=== PATIENT | female | born 1965 | race Caucasian/White ===

== ENCOUNTER 2017-09-25 20:53 | Emergency (ER) | payer SELFPAY ==
[2017-09-25 21:09] VITALS: TEMP 97.7; O2SAT 96
[2017-09-25] MEDS ORDERED: KETOROLAC TROMETHAMINE INJ 60 MG/2 ML VIAL IM ONE (21:10)
[2017-09-25] MEDS ORDERED: ORPHENADRINE CITRATE 30 MG/ML AMP IM ONE (21:10)
--- NOTE | 2017-09-25 21:10 | ED.PDOC ---
History of Present Illness - General Chief Complaint: Neck Injury/Pain Stated Complaint: neck pain Time Seen by Provider: 09/25/17 21:07 Source: RN notes reviewed, Vital Signs reviewed Additional Information: 52 YEAR OLD COMPLAINTS OF NECK PAIN AND RADIATION DOWN BOTH ARMS SHE HAS HAD SURGERY FOR CERVICAL SPONDYLOSIS AND CHIARI MALFORMATION LAST SURGERY 3 YEARS AGO AT [facility] NO RECENT TRAUMA - History of Present Illness Timing/Duration: 1 week Improving Factors: nothing Worsening Factors: nothing Associated Symptoms: denies symptoms Allergies/Adverse Reactions: Allergies NO KNOWN ALLERGY Allergy (Verified 09/25/17 21:17) Home Medications: Ambulatory Orders Alprazolam 0.5 mg PO BID PRN 08/23/13 Duloxetine HCl [Cymbalta] 60 mg PO BID 08/23/13 Eszopiclone [Lunesta] 3 mg PO HS 08/23/13 Gabapentin 300 mg PO BID 08/23/13 Losartan Potassium & Hydrochlo [Losartan Potassium/Hydroc] 1 tab PO AM 08/23/13 Omeprazole 40 mg PO 08/23/13 Methocarbamol [Robaxin] 750 mg PO Q8HR #30 tab 09/25/17 Review of Systems - Review of Systems Constitutional: States: no symptoms reported EENTM: States: no symptoms reported Respiratory: States: no symptoms reported Cardiology: States: no symptoms reported Gastrointestinal/Abdominal: States: no symptoms reported Genitourinary: States: no symptoms reported Musculoskeletal: States: no symptoms reported Skin: States: no symptoms reported Neurological: States: see HPI Endocrine: States: no symptoms reported Past Medical History (General) - Patient Medical History Hx Congestive Heart Failure: No Hx Diabetes: No Family Medical History - Family History Mother Family History: Unknown Living Status: Still Living Physical Exam - Physical Exam General Appearance: Alert, No apparent distress Eye Exam: bilateral normal Ears, Nose, Throat: hearing grossly normal, normal ENT inspection, normal pharynx Respiratory: chest non-tender, lungs clear, normal breath sounds, no respiratory distress, no accessory muscle use Cardiovascular/Chest: normal peripheral pulses, regular rate, rhythm, no edema, no gallop, no JVD Gastrointestinal/Abdominal: normal bowel sounds, non tender, soft, no organomegaly, no pulsatile mass Back Exam: normal inspection, no CVA tenderness Extremity: normal range of motion, non-tender, normal inspection 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 Copy, Patient Portal Self Enrollment Instructions: DI for Neck Pain Diet: regular diet Activity: increase activity as tolerated Referrals: Teddy Estrada MD [Primary Care Provider] - 1-2 Weeks Prescriptions: Methocarbamol [Robaxin] 750 mg PO Q8HR #30 tab Home Medications: Ambulatory Orders Alprazolam 0.5 mg PO BID PRN 08/23/13 Duloxetine HCl [Cymbalta] 60 mg PO BID 08/23/13 Eszopiclone [Lunesta] 3 mg PO HS 08/23/13 Gabapentin 300 mg PO BID 08/23/13 Losartan Potassium & Hydrochlo [Losartan Potassium/Hydroc] 1 tab PO AM 08/23/13 Omeprazole 40 mg PO 08/23/13 Methocarbamol [Robaxin] 750 mg PO Q8HR #30 tab 09/25/17
[2017-09-25 22:25] VITALS: BP 122/90
== END 2017-09-25 22:06 | disposition home or self-care (01) ==
LOC: ER 20:53
DX: M54.12 Radiculopathy, cervical region (principal); T14.8XXA Other injury of unspecified body region, initial encounter; X58.XXXA Exposure to other specified factors, initial encounter
CPT/HCPCS: J1885; J2360

== ENCOUNTER → 2018-07-03 | Outpatient (CLI) | payer OTHER ==
--- NOTE | 2018-07-04 17:20 | MRI ---
EXAM DESCRIPTION: Lumbar Spine w/o Contrast : Magnetic Resonance Imaging. CLINICAL HISTORY: DORSALGIA COMPARISON: None. TECHNIQUE: Multiplanar, multiple standard sequences, non contrast MRI, lumbar spine. FINDINGS: L5-S1: Desiccated signal in the disc and minimal disc space loss. Central air or calcification in the disc. Modic type I endplate reactive changes bilaterally. Grade 1 anterolisthesis 5 mm. Disc bulges slightly posterior to the superior L1 endplate. At the base of the right foramen in the right side canal there is a focal protrusion of the disc which is abutting the right subarticular recess and the descending right S1 nerve root. This nerve root appears conjoined or thickened. Bilateral foraminal encroachment secondary to anterolisthesis result in bilateral foraminal stenosis more right than left. Bilateral facet arthrosis and hypertrophy more left than right. L4-5: Desiccation of the disc and posterior more than anterior disc space loss. Midline 5 mm protrusion abutting the thecal sac with minimal migration below the disc space abutting the descending left L5 nerve. Left paracentral AP canal diameter 9 mm, mild canal stenosis. Bilateral facet arthrosis and ligament hypertrophy. Bilateral mild to moderate foraminal narrowing. L3-4: Disc desiccation with minimal disc space loss more posterior. Posterior broad-based disc bulge with midline protrusion 6 mm impressing on the thecal sac. Bilateral flavum ligament hypertrophy. AP canal diameter 7 mm. Bilateral mild foraminal narrowing. L2-3: Disc desiccation and minimal to moderate disc space loss. Posterior broad-based 4 mm bulge. Bilateral facet arthrosis and flavum ligament hypertrophy. AP canal diameter 10 mm. Left side Modic type II endplate reactive changes with disc spur complex encroaching on the foramen which is moderately narrowed. Right foramen is patent. L1-2: Disc intensity disc space almost identical to L2-3 disc space, except left posterior 6 mm disc protrusion with T2 hyperintense signal in an annular fissure. Disc extrusions are migrating below the disc space encroaching on the left subarticular recess and the descending left L2 nerve. Mild to moderate left foraminal narrowing with right foramen patent. Bilateral minimal flavum ligament hypertrophy and facet arthrosis. T12-L1: Anterior disc bulge. Desiccated disc minimal disc space loss. 4 mm disc bulge slightly more to the left of midline, narrowing the left foramen but no nerve impingement. Right foramen is patent. Posterior elements unremarkable. Canal patent.. L2-L4 dextroscoliosis. Paravertebral soft tissues show muscle atrophy at multiple levels. Otherwise normal marrow signal in the remaining vertebral bodies and the posterior elements. Vertebral bodies are not compressed at any level. IMPRESSION: 1. Grade 1 anterolisthesis L5-S1 bulging disc. Right posterior disc migration below the disc space and or thickened conjoined right S1 nerve in the right subarticular recess. Correlate with clinical findings. Bilateral foraminal stenosis. Correlate for bilateral L5 radiculopathy. 2. Midline L4-5 disc protrusion with migration below the disc space abutting the descending left L5 nerve in the left subarticular recess. Multifactorial Mild central canal stenosis. 3. L3-4 posterior disc bulge. Hypertrophy of the posterior elements with mild to moderate multifactorial canal stenosis. Foramina are patent. 4. Posterior broad-based L2-3 disc bulge. Posterior element hypertrophy and arthrosis. Borderline mild central canal stenosis. Moderate spondylosis to the left narrowing the foramen. 5. Left posterior protrusion of the L1-2 disc and inferior extrusion or migration encroaching on the left subarticular recess and the descending left L2 nerve. Correlate for radiculopathy. Electronically signed by: Neto Gongora MD 07/04/2018 5:19 PM CDT
== END ==
LOC: MRI 14:00
PROVIDERS: ATTEND Family Medicine
DX: M43.17 Spondylolisthesis, lumbosacral region (principal); M51.26 Other intervertebral disc displacement, lumbar region; M48.061 Spinal stenosis, lumbar region without neurogenic claudication

== ENCOUNTER → 2018-07-03 | Outpatient (CLI) | payer OTHER | LOC: YCFC.O 07-02 14:40 | PROVIDERS: ATTEND Family Medicine | DX: I10 Essential (primary) hypertension (principal); R53.83 Other fatigue; Z87.891 Personal history of nicotine dependence ==

== ENCOUNTER 2018-10-04 10:36 | Emergency (ER) | payer BC, OTHER ==
[2018-10-04] MEDS ORDERED: CLINDAMYCIN HCL CAP 150 MG CAP PO ONE (10:44)
[2018-10-04] MEDS ORDERED: CLINDAMYCIN PHOSPHATE 150 MG/ML VIAL IM ONE (10:44)
--- NOTE | 2018-10-04 10:44 | ED.PDOC ---
History of Present Illness - General Chief Complaint: Dental/Mouth Stated Complaint: Dental discomfort Time Seen by Provider: 10/04/18 10:43 Source: patient - History of Present Illness Initial Comments: Gris Wheeler 53 y/o female see er with dull pain left lower jaw for 2-3 days,no fever or chills.Has dentist appointment coming Timing/Duration: other - see hpi Severity: moderate EENT Location: dental Prearrival Treatment: no prearrival treatment Presenting Symptoms: pain Improving Factors: nothing Worsening Factors: eating Associated Symptoms: other - see hpi Allergies/Adverse Reactions: Allergies NO KNOWN ALLERGY Allergy (Verified 09/25/17 21:17) Home Medications: Ambulatory Orders Alprazolam 0.5 mg PO BID PRN 08/23/13 Duloxetine HCl [Cymbalta] 60 mg PO BID 08/23/13 Eszopiclone [Lunesta] 3 mg PO HS 08/23/13 Gabapentin 300 mg PO BID 08/23/13 Losartan Potassium & Hydrochlo [Losartan Potassium/Hydroc] 1 tab PO AM 08/23/13 Omeprazole 40 mg PO 08/23/13 Methocarbamol [Robaxin] 750 mg PO Q8HR #30 tab 09/25/17 Acetamin W/Cod #3 Tab [Tylenol w/CODEINE #3] 1 ea PO Q6HRS PRN #20 tab 10/04/18 Clindamycin HCl [Cleocin] 300 mg PO TID 7 Days #42 cap 10/04/18 Review of Systems - Review of Systems Constitutional: States: no symptoms reported EENTM: States: see HPI, other - dental pain Respiratory: States: no symptoms reported Cardiology: States: no symptoms reported All other Systems: Reviewed and Negative, No Change from Baseline Past Medical History (General) - Patient Medical History Hx Seizures: No Hx Stroke: No Hx Asthma: No Hx Congestive Heart Failure: No Hx Hypertension: No Hx Diabetes: No Hx Cancer: No Hx MRSA: No Surgical History: cholecystectomy, other - hysterectomy.neck - Vaccination History Hx Tetanus, Diphtheria Vaccination: Yes Hx Influenza Vaccination: No Hx Pneumococcal Vaccination: No - Social History Hx Tobacco Use: Yes Hx Alcohol Use: No - Activities of Daily Living Patient Lives Alone: No - Female History Patient : No Family Medical History - Family History Mother Family History: Unknown Living Status: Still Living Physical Exam - Physical Exam General Appearance: Alert, Comfortable, No apparent distress Eye Exam: bilateral normal Ear Exam: bilateral ear: auricle normal, canal normal, TM normal Nasal Exam: normal inspection Throat Exam: other - multiple dental decay and missing teeth with mild gum swelling Neck: non-tender, full range of motion, supple, normal inspection, trachea midline Cardiovascular/Respiratory: regular rate, rhythm, no M/R/G, normal peripheral pulses, no JVD Abdominal Exam: non-tender, no organomegaly Neurologic: no motor/sensory deficits, alert, oriented x 3 Skin Exam: normal color, warm/dry Progress - Progress Progress: 10/04/18 11:14 Vital Signs - 8 hr 10/04/18 10/04/18 10:40 11:08 Pulse Rate [ 102 H Left Radial] Respiratory 16 16 Rate Blood Pressure 135/109 [Left Arm] O2 Sat by Pulse 96 Oximetry Departure - Departure Clinical Impression: Dental decay, Abscess, dental Time of Disposition: 11:15 Disposition: Discharge to Home or Self Care Condition: Good Departure Forms: ED Discharge - Pt. Copy, Patient Portal Self Enrollment Instructions: DI for Dental Pain, Tooth Decay, Adult (DC), Dental Pain (DC), Tooth Abscess (DC) Diet: other - soft diet until better Referrals: Ken Cuenca MD [Primary Care Provider] - 1-2 Weeks Prescriptions: Acetamin W/Cod #3 Tab [Tylenol w/CODEINE #3] 1 ea PO Q6HRS PRN #20 tab PRN Reason: Pain Clindamycin HCl [Cleocin] 300 mg PO TID 7 Days #42 cap Home Medications: Ambulatory Orders Alprazolam 0.5 mg PO BID PRN 08/23/13 Duloxetine HCl [Cymbalta] 60 mg PO BID 08/23/13 Eszopiclone [Lunesta] 3 mg PO HS 08/23/13 Gabapentin 300 mg PO BID 08/23/13 Losartan Potassium & Hydrochlo [Losartan Potassium/Hydroc] 1 tab PO AM 08/23/13 Omeprazole 40 mg PO 08/23/13 Methocarbamol [Robaxin] 750 mg PO Q8HR #30 tab 09/25/17 Acetamin W/Cod #3 Tab [Tylenol w/CODEINE #3] 1 ea PO Q6HRS PRN #20 tab 10/04/18 Clindamycin HCl [Cleocin] 300 mg PO TID 7 Days #42 cap 10/04/18
[2018-10-04] MEDS ORDERED: IBUPROFEN 200 MG TAB PO ONE (10:45)
[2018-10-04 11:09] VITALS: O2SAT 96
[2018-10-04 11:26] VITALS: BP 134/92; TEMP 98.6
== END 2018-10-04 11:25 | disposition home or self-care (01) ==
LOC: ER 10:36
DX: K04.7 Periapical abscess without sinus (principal); K02.9 Dental caries, unspecified; Z87.891 Personal history of nicotine dependence

== ENCOUNTER → 2018-12-30 | Outpatient (CLI) | payer BC | LOC: YCFC.O 10:27 | PROVIDERS: ATTEND Family Medicine | DX: R30.0 Dysuria (principal) ==

== ENCOUNTER → 2019-02-10 | Outpatient (CLI) | payer BC | LOC: LAB.O 14:36 | PROVIDERS: ATTEND Family Medicine | DX: F90.9 Attention-deficit hyperactivity disorder, unspecified type (principal) ==

== ENCOUNTER → 2019-07-15 | Outpatient (CLI) | payer BC ==
--- NOTE | 2019-07-15 13:05 | RAD ---
EXAM DESCRIPTION: Chest,2 Views CLINICAL HISTORY: COUGH COMPARISON: None TECHNIQUE: PA/lateral FINDINGS: Two views of the chest demonstrate previous anterior plating and fixation of the lower cervical spine and calcific encapsulation breast implants overlying the lower chest bilaterally. The lungs are adequately expanded and clear. No hilar pleural or mediastinal disease is seen. Heart size and vascularity is normal. The hilar and mediastinal structures are normal. IMPRESSION: No acute cardiopulmonary disease. Electronically signed by: Teddy Watters MD 07/15/2019 1:04 PM [employer]IDENTIAL [employer]
== END ==
LOC: RAD 12:37
PROVIDERS: ATTEND Nurse Practitioner
DX: R05 Cough (principal)

== ENCOUNTER → 2020-04-12 | Outpatient (CLI) | payer OTHER | LOC: YCFC.O 13:06 | PROVIDERS: ATTEND Family Medicine | DX: R30.0 Dysuria (principal) ==